=== PATIENT | male | born 1960 | race Caucasian/White ===

== ENCOUNTER 2019-05-16 10:29 | Emergency (ER) | payer BC, SELFPAY ==
[2019-05-16] VITALS (7 sets, daily range): BP systolic 124–162; BP diastolic 93–114; PULSE 63–78; RESP 16–19; TEMP 36.9; O2SAT 93–97; BMI 36.3
--- NOTE | 2019-05-16 10:44 | EKG12_ITS ---
Test Reason : CP Blood Pressure : / mmHG Vent. Rate : 080 BPM Atrial Rate : 080 BPM P-R Int : 160 ms QRS Dur : 110 ms QT Int : 370 ms P-R-T Axes : 049 -27 045 degrees QTc Int : 426 ms Normal sinus rhythm Incomplete right bundle branch block Borderline ECG Confirmed by FARNAZ CARR, LORI ([id number]), movie editor PERLA MEJIA ([id number]) on 05/17/2019 8:25:57 AM Referred By: DANN Confirmed By:LORI OSEI MD
--- NOTE | 2019-05-16 10:46 | ED.DCSUM_ITS ---
- ER Visit Summary Date of Service: 05/16/19 Chief Complaint: Chest pain History of Present Illness: The patient is a 58 M who presents with chest pain is been intermittent since yesterday. Patient states it lasts a few minutes. Patient states it is worse with exertion and improves with rest. Patient loyda cribes the pain is sharp. Patient states pain is over the left chest and radiates into his neck and back. Patient does admit to some diaphoresis and shortness of breath with this. Patient also admits to a cough. Patient denies any fevers. Patient does admit to some lightheadedness and dizziness. Patient cardiac risk factors include smoking and a family history of coronary artery disease in his mother. Physical Examination: Vital signs are stable. Patient is afebrile. Patient is in no acute distress. Oral mucosa is pink and moist. Neck is supple. Trachea is midline. There is no JVD noted. Heart was regular rate and rhythm. Lungs are clear and equal bilaterally. Abdomen is soft. Bowel sounds are normal. There is no tenderness. There is no rebound or guarding noted. Skin is warm dry. Cranial nerves II through XII are intact. There are no focal motor or sensory deficits noted. Extremities are intact. There is no calf tenderness or edema. There is clubbing and cyanosis of the fingers bilaterally. Test Results: CBC and basic metabolic profile were obtained were within normal limits. Troponin was normal. D-dimer was normal. EKG showed normal sinus rhythm with a rate of 80. There are no acute ST or T wave changes. PA and lateral chest x-ray was obtained. There are chronic changes including interstitial scarring but no acute infiltrate. Arterial blood gas showed a pH of 7.41, PCO2 of 42.4, PO2 of 77, bicarb of 26.6, 95% sat on room air. Emergency Department Course and Treatment: Patient was given aspirin here. Patient had no further chest pain. Patient was feeling better on reevaluation. Patient has a HEART score of 3 and a TRACY risk score of 1. Patient was advised that this is low risk for acute cardiac event. Patient was referred to Dr. Barrera to be his primary care physician since she was next on the call sheet for unassigned patients. Patient was also instructed to continue to monitor his blood pressure. Patient was instructed to take a log of his blood pressures to his follow-up appointment. Patient understood and was agreeable with the plan. All questions were answered. Disposition: Discharge home Impression: 1. Chest pain This note was generated with [employer] dictation software. It may contain incorrect words, spelling, and punctuation that were not noted in review of the chart prior to signing ED Disposition - Plan for ED Patient: Disposition: Home or Assisted Living Diagnosis: Chest pain of uncertain etiology Instructions: CHEST PAIN, Uncertain Cause Referrals: Care Physician,No Primary [Primary Care Provider] - Fast,Sarah, DO [NON-STAFF] - 5-7 Days
[2019-05-16] MEDS: Aspirin 81 MG TAB.CHEW 324 MG PO (10:53)
[2019-05-16 10:54] LABS: Absolute Lymphocyte Count 2.49 X10^3/uL (0.83-4.51); Absolute Neutrophil Count 3.9 X10^3/uL (2.0-7.7); Basophil# 0.05 X10^3/uL; Basophil% 0.7 % (0-1); Eosinophil# 0.23 X10^3/uL; Eosinophils% 3.1 % (0-5); Hematocrit 49.7 % (40-54); Lymphocyte # 2.49 X10^3/ul (4.0); Lymphocyte % 33.7 % (19-41); Mean Corp Hgb Conc 34.2 g/dL (32-36); Mean Corpuscular Hgb 31.8 pg (27.0-32.0); Mean Corpuscular Volume 92.9 fL (80-94); Mean Platelet Vol. 8.2 fl (6.2-12.0); Monocyte# 0.66 X10^3/uL; Monocyte% 8.9 % (0-10); NRBC Flagged by Analyzer 0 % (0-5); Neutrophil # 3.88 X10^3/uL (2.7-7.7); Neutrophil % 52.7 % (47-70); Platelet Count 194 K/mm3 (150-450); RBC Distribution Width SD 41.1 fl (35.1-43.9); Red Blood Count 5.35 M/mm3 (4.6-6.2); White Blood Count 7.4 K/mm3 (4.4-11.0)
[2019-05-16] MEDS: Nitroglycerin SL (ED/IMG/CATH) 0.4 MG TABLET SUBLINGUAL (10:56)
--- NOTE | 2019-05-16 11:04 | RAD_ITS ---
STUDY: X-RAY CHEST REASON FOR EXAM: Male, 58 years old. CHEST PAIN RADIATING INTO LEFT SHOULDER, LEFT BACK AND CYANOTIC LEFT UPPER EXTREMITY TECHNIQUE: PA and lateral views of the chest. COMPARISON: Comparison is made with prior study dated January 26, 2012. FINDINGS: EKG electrodes are seen. Since prior study, there has been mild progression of increased interstitial markings at the lung bases suggestive of a bibasilar scarring. There is no demonstrated pleural abnormality. Normal size heart. Normal mediastinum and jarrett. Normal visualized pulmonary arteries. Normal visualized aortic arch and descending thoracic aorta. Normal visualized thoracic spine. Normal visualized ribs, clavicles, and shoulders. There is no demonstrated abnormality of the visualized soft tissue structures of the upper abdomen. RAD/Chest PA and Lateral IMPRESSION: Progressive increase in the interstitial markings at the lung bases slightly worse on the left side suggestive of interstitial scarring. Electronically Signed: Lamine Killian, at 11:19 EDT , Service support ,
[2019-05-16 11:07] LABS: D-Dimer Quantitative (DVT/PE) 0.32 FEU/ug/m (0.27-0.49)
[2019-05-16 11:13] LABS: Anion Gap 8 (5-15); BUN 10 mg/dL (7-18); BUN/Creat Ratio 10.3 RATIO (10-20); Calcium,Total 9.3 mg/dL (8.5-10.1); Chloride 103 mmol/L (98-107); Creatinine, Serum 0.97 mg/dL (0.70-1.30); EST Glomerular Filtration Rate 84 mL/min (>60); Est Glom Filt Rate - Afr Amer 102 mL/min (>60); Estimated Creatinine Clearance 81.29 ml/min; Glucose 145 mg/dL (74-106); Potassium 3.7 mmol/L (3.5-5.1); Sodium Level 139 mmol/L (136-145)
[2019-05-16 13:41] LABS: Base Excess 2 mmol/L (-2 to +2); Bicarbonate 26.6 mmol/L (22-26); Blood Gas Specimen Type ART; O2 Delivery Device Room Air; PO2 77 mmHG (75-100); SITE L Brachial; SO2 95 % (95-99); Time Given 1333; Total Carbon Dioxide 28 mmol/L; pCO2 42.4 mmHg (35-45); pH 7.41 (7.35-7.45)
== END 2019-05-16 14:31 | disposition home or self-care (01) ==
PROVIDERS: Emergency Provider Emergency Medicine
DX: R07.9 Chest pain, unspecified (principal); F17.220 Nicotine dependence, chewing tobacco, uncomplicated
CPT/HCPCS: 36600; 71046; 80048; 82803; 84484; 85025; 85379; 93005; 99285; J7030; A4216

== ENCOUNTER → 2019-05-26 10:54 | Outpatient (CLI) | payer BC, SELFPAY ==
[2019-05-16 10:30] VITALS: BMI 36.3
--- NOTE | 2019-05-26 10:57 | RAD_ITS ---
STUDY: X-RAY CHEST REASON FOR EXAM: Male, 58 years old. COUGH X 3 WEEKS TECHNIQUE: PA and lateral views of the chest. COMPARISON: Comparison is made with prior study dated May 16, 2019. FINDINGS: Stable increased interstitial markings at the lung bases suggesting scarring. Stable mild bilateral apical scarring. There is no demonstrated pleural abnormality. Normal size heart. Normal mediastinum and jarrett. Normal visualized pulmonary arteries. Normal visualized aortic arch and descending thoracic aorta. Normal visualized thoracic spine. Normal visualized ribs, clavicles, and shoulders. There is no demonstrated abnormality of the visualized soft tissue structures of the upper abdomen. RAD/Chest PA and Lateral IMPRESSION: Stable increased markings in both lungs more prominent at the lung bases suggestive of pulmonary scarring. Electronically Signed: Lamine Killian, at 12:04 EDT , Service support ,
== END ==
PROVIDERS: Referring Provider Nurse Practitioner; Visit Provider Nurse Practitioner
DX: R05 Cough (principal)
CPT/HCPCS: 71046

== ENCOUNTER → 2019-05-27 12:53 | Outpatient (CLI) | payer BC, SELFPAY ==
[2019-05-16 10:30] VITALS: BMI 36.3
--- NOTE | 2019-05-27 13:14 | CT_ITS ---
STUDY: CTA CHEST REASON FOR EXAM: Male, 58 years old. LT HAND PURPLE/LT NECK AND LT CHEST PAIN intermittent SINCE 05/11/19. Hx of vocal cord cancer. RADIATION DOSAGE (If Supplied By Facility): CTDIvol = ( 10.10 ) mGy, DLP = ( 1144.13 ) mGycm TECHNIQUE: The examination was performed with the intravenous administration of 200 ml isovue 370. Post-processing of the angiographic images was performed, with multiplanar reformation and 3D reconstruction. Individualized dose optimization techniques were used for this CT. COMPARISON: Comparison is made with prior examination dated November 07, 2016. FINDINGS: Small benign-appearing bilateral axillary lymph nodes. Normal enhancement of the main pulmonary artery and right and left pulmonary arteries. Normal enhancement of the bilateral peripheral pulmonary arteries. There is no demonstrated pulmonary embolism. Normal thoracic aorta and visualized great vessels. There is no demonstrated aortic dissection. Normal heart and pericardium. There are visualized mediastinal lymph nodes, which are within normal size limits, and with normal morphology. Normal hilar regions. Normal visualized trachea and bronchi. The lungs are well expanded. Mild emphysematous changes in the lungs worse in the upper lobes with the areas of scarring at the lung bases with subpleural blebs. Normal pleura. Normal chest wall structures. Normal osseous structures. There is a 2.3 cm x 3 cm cyst in the posterior medial aspect of the upper pole of the right kidney. Hepatomegaly with diffuse fatty infiltration of the liver. CT/CTA Chest W/WO Contrast IMPRESSION: There is no evidence of pulmonary motion. Interstitial scarring at the lung bases superimposed on emphysematous changes. Stable right renal cyst. Hepatomegaly and fatty infiltration of the liver. Electronically Signed: Lamine Killian, at 14:13 EDT , Service support ,
== END ==
PROVIDERS: PCP Nurse Practitioner; Referring Provider Nurse Practitioner; Visit Provider Nurse Practitioner
DX: R06.02 Shortness of breath (principal)
CPT/HCPCS: 71275; Q9967; A4216

== ENCOUNTER → 2019-06-28 10:03 | Outpatient (CLI) | payer BC, SELFPAY ==
[2019-05-16 10:30] VITALS: BMI 36.3
--- NOTE | 2019-06-28 10:07 | RAD_ITS ---
STUDY: X-RAY - LEFT KNEE REASON FOR EXAM: Male, 58 years old. Knee pain after repetitively being on knees for work TECHNIQUE: 4 view(s) of the knee. COMPARISON: None. FINDINGS: Normal visualized distal femur. Normal visualized proximal tibia and fibula. Normal proximal tibiofibular articulation. Normal medial femorotibial compartment. Normal lateral femorotibial compartment. Normal patellofemoral articulation. The soft tissue structures are unremarkable. RAD/Knee 4 or More Views IMPRESSION: Normal x-ray examination of the knee. Electronically Signed: Lamine Killian, at 10:34 EDT , Service support ,
== END ==
PROVIDERS: PCP Nurse Practitioner; Referring Provider Nurse Practitioner; Visit Provider Nurse Practitioner
DX: M79.605 Pain in left leg (principal); M25.562 Pain in left knee
CPT/HCPCS: 73564

== ENCOUNTER → 2019-06-28 10:42 | Outpatient (CLI) | payer BC, SELFPAY ==
[2019-05-16 10:30] VITALS: BMI 36.3
--- NOTE | 2019-06-28 10:46 | VDLE_ITS ---
Reason For Study: Pain RIGHT LEFT CFV is compressible, spontaneous, phasic, GSV is normal. competent and demonstrates normal CFV is compressible, spontaneous, phasic, augmentation. competent, and demonstrates normal Procedure augmentation. Exam performed in department. FV is compressible, spontaneous, phasic, A preliminary report was called and/or faxed competent and demonstrates normal to Ciesa. augmentation. POP V is compressible, spontaneous, phasic, competent and demonstrates normal augmentation. T/P Trunk is compressible. PTV is compressible. LT PerV is compressible. Interpretation Summary Deep veins of the left lower extremity are patent and compressible segmentally. There is no evidence of left lower extremity deep vein thrombosis. Valvular competence appears intact within the proximal deep venous system on the left . The left great saphenous vein appears patent and compressible segmentally. Ordering Physician: Aimee Romo Referring Physician: Aimee Romo Performed By: Kirstin Sol RVT
== END ==
PROVIDERS: PCP Nurse Practitioner; Referring Provider Nurse Practitioner; Visit Provider Nurse Practitioner
DX: M79.605 Pain in left leg (principal)
CPT/HCPCS: 93971

== ENCOUNTER → 2019-07-04 13:06 | Outpatient (CLI) | payer BC, SELFPAY ==
[2019-05-16 10:30] VITALS: BMI 36.3
--- NOTE | 2019-07-04 13:17 | MRI_ITS ---
STUDY: MRI LEFT KNEE REASON FOR EXAM: Male, 58 years old. Knee pain TECHNIQUE: Standardized fat and water weighted pulse sequences were obtained in all 3 orthogonal planes. COMPARISON: X-ray 06/28/2019 FINDINGS: 1 cm trizonal flap tear of the posterior horn body junction of the medial meniscus extending to the inferior surface. Normal hyaline cartilage of the medial femorotibial compartment. Normal medial femoral condyle and tibial plateau. Normal medial collateral ligamentous complex (MCL). Normal distal semimembranosus, gracilis and semitendinosus tendons. Normal lateral meniscus. Normal hyaline cartilage of the lateral femorotibial compartment. Normal lateral femoral condyle and tibial plateau. Normal proximal tibiofibular articulation. Normal lateral collateral (fibular) ligament. Normal popliteus tendon. Normal biceps femoris tendon. Normal anterior cruciate ligament (ACL). Normal posterior cruciate ligament (PCL). Shallow trochlear groove with lateral subluxation of patella and edema superolateral Hoffa''s fat pad consistent with patellofemoral maltracking. Normal hyaline cartilage of the patellofemoral compartment. Normal medial and lateral patellar retinaculum. Normal quadriceps tendon. Normal patellar tendon. Normal Hoffa''s fat pad. There is a small volume joint effusion. There is a Molina''s cyst. Mild prepatellar soft tissue swelling. The soft tissues are unremarkable. The otherwise visualized osseous structures are unremarkable. MRI/Lower Ext Joint Only (Routine) IMPRESSION: 1 cm trizonal flap tear of the posterior horn body junction of the medial meniscus extending to the inferior surface with a small joint effusion and Molina''s cyst. Electronically Signed: Irwin Norton MD at 14:11 EDT Tel , Service support ,
--- OUTSIDE RECORDS SUMMARY | 2019-12-06 08:35 | XMS RPT_ITS | CCD ---
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 nose. Saline rinses also clean the nasal lining and can be used before appl alex sprays containing medications, to get a better effect from the medication. Nasal lavage with warmed saline can be performed as ne eded, once per day, or twice daily for increased symptoms. Nasal lavage carries few risks when performed correctly. Saline nasal sprays and irr igation kits can be purchased [id number]. Saline mix es can also be purchased or patients can make their own solution. A variety of devices, including bulb syr inges, Neti pots, and bottle sprayers, may be used to perform nasal lavage; instructions for nasal lavage are provided in the table. At least 200 mL (about 3/4 cup) of fluid is recommended for each nostril. Nasal decongestants ? Nasal decongestant sprays, including o xymetazoline (Afrin?) and phenylephrine (Karthik-synephrine?) can be used to temporarily treat congestion. However, these s prays should not be used for more than two to three days due to the risk of rebound congestion (when the nose is congested constantly unless the medication is used repeatedly). Other treatments ? Other leah atments for congestion, such as oral antihistamines (such as diphenhydramine/Benadryl?) or zinc supplements are not proven to improve symptoms of sinusitis and can have unwan pippa side effects. Medications to thin secretions (such as guaifenesin) may help to clear m ucus. Secondline treatment ? If symptoms have not improved in seven to ten days, you should arrange for medical evaluation. You may need further treatment. Nasal glucocorticoids ? Nasal glucocorticoids (steroid s delivered by a nasal spray) can help to reduce sw elling inside the nose, usually within two to three days. These drugs have few side effects and dramatical ly relieve symptoms in most people. There are a number of nasal glucocorticoids available by prescription. These drugs are all effective, but differ in how frequently they must be used and how much they cost. You may need to use a nasal decongestant for a few days before starting a nasal glucocorticoid to reduce nasal swelling; this will allow the nasal glucocorticoid to reach more areas of the nasal passages Do I need an antibiotic? ? If bothersome symptom s of sinusitis persist for 10 or more days, it is possible that you have bacterial s inusitis. The need for antibiotics depends upon the severity of your symptoms. Mild symptoms ? There are two possible treatment options if you have mild sinusitis symptoms: treat with antibiotics or continue to watch and wait for one week. Watching and waiting is a reasonable opt ion because up to 75 percent of people with bacterial sinusitis improve within one bg h without antibiotics. During the watch and wait period, treatments to improve symptoms ar e recommended. If symptoms worsen or do not improve after watching and waiting, treatment with an antibiotic is usually recommended. Treatments to relieve symptoms are recommended while using antibiotics. Moderate or severe symptoms ? Most healthcare providers will prescribe an antibiotic for moderate to severe symptoms (temperature >38. 3? C or 101? F and/or severe pain that interferes with usual activities). Treatments to relieve symptoms are also recommended during a ntibiotic treatment. One of the least expensive and most effective antibiotics fo r sinusitis is amoxicillin. An alternate antibiotic jessica l be prescribed if you are allergic to penicillin. Regardless of which antibiotic is prescrib ed, it is important to follow the dosing instructions carefully and to finish the entire course of treatment. Taking the medication less often than prescribe d or stopping the medication early can lead to complications, such as a recurr ent infection. What if I do not improve with treatment? ? If you do not imp rove or worsen after a course of antibiotics, you should be re-examined. In some cases, symptoms of sinusitis improve but then recur. This is usually because the infection was not completely eliminated by the a ntibiotic. An alternate antibiotic, extend ed antibiotic treatment, and/or further testing may be recommended, depending upon your individual situation. Jessica Nguyen LPN 07/07/2018 10:03 AM Signed 2.5 solution aerosol treatment given per provider's orders. Prior to treatment O2 sat is 98%. Treatment completed. O2 sat is 96%. Tolerated well. Jessica Nguyen LPN Referring Provider: SELF [[id number]] Allergies As of Date: 07/07/2018 (No Known Allergies) Date Reviewed: 07/07/2018 Reviewed by: Rosalie ([facility]) Ingrid - Fully Assessed Reason for Visit: Sinus Problem [99] Cmt: sinus pressure and drainage, chest c ongestion and cough x seen in feb not much better Reason For Visit History Recorded Primary Visit Diagnosis:Wheezing [R06.2] Other Visit Diagnosis:Sinobronchitis [J32.9, J40] Order(s):[] albuterol 2.5 mg /3 mL (0.083 %) 2.5 mg (PROVENTIL)Disp: Rfl: azithromycin (ZITHROMAX) 250 mg tabletTake 2 tablets by mout h once daily for 1 day, THEN 1 tablet once daily for 4 days.Disp: 6 tabletRfl: 0 methylPREDNISolone (MEDROL, ALVA,) 4 mg Dose-PackFollow dosin g instructions, take with food.Disp: 1 PackageRfl: 0 albuterol HFA (VENTOLIN HFA) 90 mcg/actuation inhalerInhale 2 Puffs as instructed every 4 hours as needed for Wheezing/Shortness of Breath.Disp: 1 InhalerRfl: 0 Prescriptions as of 07/07/2018 Sig: AZITHROMYCIN 250 MG TABLET Take 2 tablets by mouth once * METHYLPREDNISOLONE 4 MG TABLE* Follow dosing instructions, t * ALBUTEROL SULFATE HFA 90 MCG/* Inhale 2 Puffs as instructed * Problem List As Of Date: 07/07/2018 (None) Other instructions from your clinician: ASSESSMENT/PLAN: 1. Wheezing - ICD9: 786.07, ICD10: R06.2 (primary diagnosis) - ALBUTEROL SULFATE 2.5 MG/3 ML (0.083 %) SOLUTION FOR NEBUL IZATION-given in office 2. Sinobronchitis - ICD9: 473.9, 490, ICD10: J32.9, J40 - Will begin treatment with Zithromax pack as directed - The patient should also be given Mucinex for the first 5-7 days of treatment. - Supportive care with plenty of fluids, rest, and analgesia prn. - AZITHROMYCIN 250 MG TABLET - METHYLPREDNISOLONE 4 MG TABLETS IN A DOSE PACK - ALBUTEROL SULFATE HFA 90 MCG/ACTUATION AEROSOL INHALER - Follow-up with your PCP in 3-5 days if symptoms have not i mproved or sooner if symptoms worsen - Discussed red flags and need for immediate medical evaluat ion if any occur. - Discussed supportive care treatment with fluids, rest and analgesia. - Discussed expected course of illness Rosalie Quintero APRN.[employer] ACUTE BRONCHITIS: You have acute bronchitis. This means the airway passages in your lungs are inflamed. Bronchitis may be caused by viruses or bacteri a. Inhaling cigarette smoke will always make it worse. Exposure to irrit ating chemicals or second hand smoke as well as allergies can cont ribute to bronchitis. Repeat episodes of bronchitis may cause lifelong lung problems. Acute bronchitis is usually treated with rest, fluids, cough medicine, and possibly antibiotics or inhaled medicine to open up the smal l airways. It is very important that you avoid smoke and drink increased a lupillo of fluids. A cool air vaporizer can help thin bronchial secreti ons. This makes it easier to cough and clear your chest. If you are a cigarette smoker, consider using nicotine gum or skin patches to help you withdraw. Recovery from bronchitis is often slow, but you should start feeling better after 2-3 days of treatment. Please call your doctor or return here if you have any of the following symptoms: - Increased fever, chills, or chest pain. - Severe shortness of breath or bloody sputum. - Do not improve after 3 days of proper treatment. [facility] PATIENT INFO ACUTE SINUSITIS OVERVIEW Rhinosinusitis, or more commonly sinusitis, is the medical t erm for inflammation (swelling) of the lining of the sinuses and nos e. The sinuses are the hollow areas within the facial bones that are connec pippa to the nasal openings. The sinuses are lined with mucous membranes, similar to the inside of the nose. There are two main types of sinusitis: acute and chronic. Ac [place] sinusitis is inflammation that lasts for less than four weeks while ch ronic sinusitis lasts for more than 12 weeks. Acute sinusitis is c ommon, affecting approximately one million people per year in the [place] [facility] [place]. ACUTE SINUSITIS CAUSES The most common cause of acute sinusitis is a viral infectio n associated with the common cold. Bacterial sinusitis occurs much less c ommonly, in only 0.5 to 2 percent of cases, usually as a complication of viral sinusitis. Because antibiotics are effective only against bacterial, an d not viral, infections, most people do not need antibiotics for acute si nusitis. ACUTE SINUSITIS SYMPTOMS Symptoms of acute sinusitis include: ? Nasal congestion or blockage ? Thick, yellow to green discharge from the nose ? Pain in the teeth ? Pain or pressure in the face that is worse when bending fo rwards Other acute sinusitis symptoms can include fever (temperatur e greater than 100.4?F or 38?C), fatigue, cough, difficulty or inability to smell, ear pressure or fullness, headache, and bad breath. In most cases, these symptoms develop over the course of one day and begin to improve within seven to 10 days. DO I NEED TO BE EXAMINED? It is difficult to know if you have a viral or bacterial sin us infection initially. However, most people with a viral infection impro ve without treatment within seven to 10 days after symptoms begin. Bact erial sinusitis also sometimes improves without treatment, althoug h it can also worsen and require treatment. If one or more of the following bothersome symptoms last mor e than seven days, an examination by a healthcare provider is recommended : ? Thick, yellow to green discharge from the nose ? Face or tooth pain, especially if it is only on one side ? Tenderness over the maxillary sinuses (located on the left and right side of the nose, inside the cheekbones) ? Symptoms that initially improve and then worsen When to seek immediate help ? If you have one or more of the following symptoms, you should seek medical attention immediately (danisha n if symptoms have been present for less than seven days): ? High fever (>102.5? F or 39.2? C) ? Sudden, severe pain in the face or head ? Double vision or difficulty seeing ? Confusion or difficulty thinking clearly ? Swelling or redness around one or both eyes ? Stiff neck, shortness of breath ACUTE SINUSITIS TREATMENT Initial treatment of a sinus infection aims to relieve sympt oms since almost everyone will improve within the first seven to 10 da ys. Experts recommend avoiding antibiotics during this time unless there is clear evidence of a severe bacterial infection. Initial treatment Pain relief ? Non-prescription pain medications, such as mario taminophen (eg, Tylenol?) or ibuprofen (eg, Motrin?, Advil?) are recomm ended for pain. Nasal irrigation and saline sprays ? Rinsing the nose with a salt-water (saline) solution is called nasal irrigation or nasal lavage . Saline is also available in a standard nasal spray, although this is n ot as effective as using larger amounts of water in an irrigation. Nasal irrigation is particularly useful for treating drainag e down the back of the throat, sneezing, nasal dryness, and congestion. The treatment helps by rinsing out allergens and irritants from the nose. Saline rinses also clean the nasal lining and can be used before applying sprays containing medications, to get a better effect from the medi cation. Nasal lavage with warmed saline can be performed as needed, once per day, or twice daily for increased symptoms. Nasal lavage carries few risks when performed correctly. Saline nasal sprays and irrigation kits can be purchased [id number]. Saline mixes can also be purchas ed or patients can make their own solution. A variety of devices, including bulb syringes, Neti pots, an d bottle sprayers, may be used to perform nasal lavage; instructions for nasal lavage are provided in the table. At least 200 mL (about 3/4 cup) of fluid is recommended for each nostril. Nasal decongestants ? Nasal decongestant sprays, including o xymetazoline (Afrin?) and phenylephrine (Karthik-synephrine?) can be used to temporarily treat congestion. However, these sprays should not be used f or more than two to three days due to the risk of rebound congestion (whe n the nose is congested constantly unless the medication is used repeatedl y). Other treatments ? Other treatments for congestion, such as oral antihistamines (such as diphenhydramine/Benadryl?) or zinc s upplements are not proven to improve symptoms of sinusitis and can have unw anted side effects. Medications to thin secretions (such as guaifenesin ) may help to clear mucus. Secondline treatment ? If symptoms have not improved in josh n to ten days, you should arrange for medical evaluation. You may need furt her treatment. Nasal glucocorticoids ? Nasal glucocorticoids (steroids deli franck by a nasal spray) can help to reduce swelling inside the nose, us ually within two to three days. These drugs have few side effects and silvano matically relieve symptoms in most people. There are a number of nasal glucocorticoids available by pre scription. These drugs are all effective, but differ in how frequently they must be used and how much they cost. You may need to use a nasal decongestant for a few days befo re starting a nasal glucocorticoid to reduce nasal swelling; this will all ow the nasal glucocorticoid to reach more areas of the nasal passages Do I need an antibiotic? ? If bothersome symptoms of sinusit is persist for 10 or more days, it is possible that you have bacterial sinu sitis. The need for antibiotics depends upon the severity of your sympt oms. Mild symptoms ? There are two possible treatment options if you have mild sinusitis symptoms: treat with antibiotics or continue to wa tch and wait for one week. Watching and waiting is a reasonable option because up to 75 percent of people with bacterial sinusitis improve within one month wit hout antibiotics. During the watch and wait period, treatments to improve symptoms are recommended. If symptoms worsen or do not improve after watching and wait ing, treatment with an antibiotic is usually recommended. Treatments to rel ieve symptoms are recommended while using antibiotics. Moderate or severe symptoms ? Most healthcare providers will prescribe an antibiotic for moderate to severe symptoms (temperature >38. 3? C or 101? F and/or severe pain that interferes with usual activities). Treatments to relieve symptoms are also recommended during a ntibiotic treatment. One of the least expensive and most effective antibiotics fo r sinusitis is amoxicillin. An alternate antibiotic will be prescribed if y ou are allergic to penicillin. Regardless of which antibiotic is pr escribed, it is important to follow the dosing instructions carefully and to finish the entire course of treatment. Taking the medication less often than prescribed or stopping the medication early can lead to comp lications, such as a recurrent infection. What if I do not improve with treatment? ? If you do not imp rove or worsen after a course of antibiotics, you should be re-examined. In some cases, symptoms of sinusitis improve but then recur. This is usually because the infection was not completely eliminated by the antibiotic. An alternate antibiotic, extended antibiotic leah atment, and/or further testing may be recommended, depending upon your nohemy vidual situation. Visit Notes: >> Jessica Nguyen LPN ThuJuly 07, 2018 10:02 AM Status: Sig coleman 2.5 solution aerosol treatment given per provider's orders. Prior to treatment O2 sat is 98%. Treatment completed. O2 sat is 96%. Tolerated well. Jessica Nguyen LPN Prescriptions ordered this encounter Disp Refills Start End ALBUTEROL SULFATE 2.5 MG/3 ML (0.083* 07/07/2018 07/07/2018 Route: INHALATION AZITHROMYCIN 250 MG TABLET 6 ta* 0 07/07/2018 07/12/2018 Route: ORAL Sig: Take 2 tablets by mouth once daily for 1 day, THEN 1 tablet once daily for 4 days. METHYLPREDNISOLONE 4 MG TABLETS IN A* 1 Pa* 0 07/07/2018 Sig: Follow dosing instructions, take with food. ALBUTEROL SULFATE HFA 90 MCG/ACTUATI* 1 In* 0 07/07/2018 Cmt: Dispense ProAir HFA: Brand or Generic Ok Route: INHALATION Sig: Inhale 2 Puffs as instructed every 4 hours as needed fo r Wheezing/Shortness of Breath. Encounter Status:Closed by ROSALIE QUINTERO on 07/07/18 Vital Signs Vital Sign Description Value / Unit Date Location The following section is limited to 5 en tries per type and includes entries from the following time range: [id number] - [id number] 0. BMI (Body Mass Index) 34.51 kg/m2 08-23-2019 [facility] (21511) BMI (Body Mass Index) 34.51 kg/m2 07-20-2019 [facility] (21066) BMI (Body Mass Index) 34.51 kg/m2 07-11-2019 [facility] (18860) NEGATED: Highlighted 35.71 kg/m2 07-07-2019 - 07-07-2019 [facility] ([id number]) BMI (Body Mass Index) 35.59 kg/m2 06-28-2019 [facility] (44252) Body Temperature 97.8 [degF] 07-11-2019 [facility] (58508) Body Temperature 97.4 [degF] 06-28-2019 [facility] (28613) Body Temperature 98 [degF] 06-06-2019 [facility] (50266) Body Temperature 97.6 [degF] 05-20-2019 [facility] (85064) Body Temperature 97.5 [degF] 11-24-2016 [facility] (27589) Body weight 102.97 kg 08-23-2019 [facility] (14654) Body weight 102.97 kg 07-20-2019 [facility] (35825) Body weight 102.97 kg 07-11-2019 [facility] (66812) NEGATED: Highlighted 106.14 kg 07-07-2019 - 07-07-2019 [facility] (15739) NEGATED: Highlighted 106 kg 07-07-2019 - 07-07-2019 [facility] - [facility] (95389) BP Diastolic 80 mm[Hg] 08-23-2019 [facility] (94749) BP Diastolic 80 mm[Hg] 07-20-2019 [facility] (82682) BP Diastolic 78 mm[Hg] 07-11-2019 [facility] (92116) BP Diastolic 76 mm[Hg] 06-28-2019 [facility] (15721) BP Diastolic 94 mm[Hg] 06-27-2019 [facility] (45599) BP Systolic 120 mm[Hg] 08-23-2019 [facility] (35550) BP Systolic 117 mm[Hg] 07-20-2019 [facility] (28930) BP Systolic 122 mm[Hg] 07-11-2019 [facility] (51145) BP Systolic 118 mm[Hg] 06-28-2019 [facility] (48262) BP Systolic 127 mm[Hg] 06-27-2019 [facility] (45600) BSA (Body Surface Area) 2.16 m2 08-23-2019 [facility] (40544) BSA (Body Surface Area) 2.16 m2 07-20-2019 [facility] (04760) BSA (Body Surface Area) 2.16 m2 07-11-2019 [facility] (89589) BSA (Body Surface Area) 2.19 m2 06-28-2019 [facility] (40431) BSA (Body Surface Area) 2.17 m2 06-27-2019 [facility] (79135) Height 172.72 cm 08-23-2019 [facility] (44586) Height 172.72 cm 07-20-2019 [facility] (53615) Height 172.72 cm 07-11-2019 [facility] (54738) NEGATED: Highlighted 173 cm 07-07-2019 - 07-07-2019 [facility] (05154) NEGATED: Highlighted 172.72 cm 07-07-2019 - 07-07-2019 [facility] (79800) Pulse (Heart Rate) 79 /min 07-11-2019 [facility] (87372) Pulse (Heart Rate) 77 /min 06-28-2019 [facility] (17290) Pulse (Heart Rate) 97 /min 05-27-2019 [facility] (99775) Pulse (Heart Rate) 91 /min 05-20-2019 [facility] (56202) Pulse (Heart Rate) 77 /min 11-24-2016 [facility] (50071) Pulse Oximetry 97 % 07-20-2019 [facility] (28653) Pulse Oximetry 95 % 07-11-2019 [facility] (60841) Pulse Oximetry 97 % 06-28-2019 [facility] (67540) Pulse Oximetry 90 % 06-06-2019 [facility] (83346) Pulse Oximetry 95 % 05-30-2019 [facility] (19619) Respiratory Rate 18 /min 07-11-2019 [facility] (95997) Respiratory Rate 16 /min 06-28-2019 [facility] (48498) Respiratory Rate 90 /min 06-06-2019 [facility] (56864) Respiratory Rate 16 /min 05-20-2019 [facility] (44166) Respiratory Rate 17 /min 11-24-2016 [facility] (10855) Encounters Date Type Reason Provider Location 07-05-2019 - Annotation/Addend Medial meniscus tear [facility] 07-05-2019 [facility] 07-04-2019 - Annotation/Addend Medial meniscus tear [facility] 07-04-2019 [facility] 06-28-2019 - Annotation/Addend Knee pain, left Compreh ensive 06-28-2019 [facility] 05-30-2019 - Annotation/Addend H/O: asbestos Comprehen sive 05-30-2019 [facility] exposure [facility] 05-27-2019 - Annotation/Addend Chronic obstructive Com prehensive 05-27-2019 [facility] pulmonary disease and [employer] [facility] bronchiectasis 05-27-2019 - Annotation/Addend Cough Comprehens lan 05-27-2019 [facility] 05-27-2019 - Annotation/Addend Hypertensive disorder C omprehensive 05-27-2019 [facility] 05-25-2019 - Annotation/Addend Short of breath on Comp rehensive 05-25-2019 [facility] exertion [facility]i [facility] 11-24-2016 - Annotation/Addend Rib pain on right Compr ehensive 11-24-2016 um side Internal Medici ne 11-04-2016 - Office outpatient Comprehens lan 11-04-2016 new 45 minutes Internal Medi cine 08-23-2019 - Office outpatient Comprehens lan 08-23-2019 visit 15 minutes Internal Me dicine 07-20-2019 - Office outpatient Comprehens lan 07-20-2019 visit 15 minutes Internal Me dicine 06-27-2019 - Office outpatient Nonsmoker Comprehens lan 06-27-2019 visit 15 minutes Internal Me dicine 05-30-2019 - Office outpatient Comprehens lan 05-30-2019 visit 15 minutes Internal Me dicine 05-25-2019 - Office outpatient Comprehens lan 05-25-2019 visit 15 minutes Internal Me dicine 05-23-2019 - Office outpatient Comprehens lan 05-23-2019 visit 15 minutes Internal Me dicine 05-20-2019 - Office outpatient Comprehens lan 05-20-2019 visit 15 minutes Internal Me dicine 11-24-2016 - Office outpatient Comprehens lan 11-24-2016 visit 15 minutes Internal Me dicine 07-11-2019 - Office outpatient Comprehens lan 07-11-2019 visit 25 minutes Internal Me dicine 06-28-2019 - Office outpatient Comprehens lan 06-28-2019 visit 25 minutes Internal Me dicine 06-22-2019 - Office outpatient Comprehens lan 06-22-2019 visit 25 minutes Internal Me dicine 06-06-2019 - Office outpatient Comprehens lan 06-06-2019 visit 25 minutes Internal Me dicine 05-27-2019 - Office outpatient Comprehens lan 05-27-2019 visit 25 minutes Internal Me dicine 07-07-2019 - [facility] encounter [facility] [facility] ([id number]) 11-13-2016 - Phone Encounter Unspecified Diagnosis Com prehensive 11-13-2016 Internal Medici ne 11-07-2016 - Phone Encounter Rib pain on right Compreh ensive 11-07-2016 side Internal Medici ne Procedures Procedure Name Date Provider Location NEGATED: Highlighted 07-07-2019 [facility] current 07-07-2019 [facility] ([id number]) Arthrocentesis aspir&/inj 07-07-2019 - [facility] major jt/bursa w/o us 07-07-2019 [facility] ([id number]) Blood pressure screening 07-07-2019 - [facility] not performed - reason not 07-07-2019 [facility] - given [facility] ([id number]) BMI documented as above 07-07-2019 - [facility] normal parameters - 07-07-2019 [facility] - follow-up documented [facility] ([id number]) Documentation of current 07-07-2019 - [facility] medications 07-07-2019 [facility] ([id number]) Injection - betamethasone 07-07-2019 - [facility] acetate 3 mg and 07-07-[address] [facility] ter - betamethasone sodium [facility] phosphate 3 mg Clinic ([id number]) Osteoarthritis assess 07-07-2019 - [facility] 07-07-[facility] ([id number]) Pain assessment documented 07-07-2019 - [facility] as positive - follow-up 07-07-2019 [facility] - documented [facility] ([id number]) Tobacco non-user 07-07-2019 - [facility] 07[facility] ([id number]) Lower Ext Joint Only 07-04-2019 - Betty Ciesa Comprehensi ve Internal (Routine) 07-04-2019 Medicine ([id number]) Venous Duplex US, 06-28-2019 - Betty Ciesa [facility] Unilateral 06-28-2019 Medicine ([id number]) Knee 4 or More Views 06-28-2019 - Betty Ciesa Comprehensi ve Internal 06-28-2019 Medicine ([id number]) CTA Chest W/WO Contrast 05-27-2019 - Betty Ciesa Comprehe nsive Internal 05-27-2019 Medicine ([id number]) Chest PA and Lateral 05-26-2019 - Betty Ciesa Comprehensi ve Internal 05-26-2019 Medicine ([id number]) Chest WITH Contrast 11-07-2016 - Betty Ciesa Comprehensiv e Internal 11-07-2016 Medicine ([id number]) Appendectomy Abner Fletcher [facility] (46659) Right knee reconstruction Abner Fletcher [facility] ([id number]) Vocal cord sx Abner Fletcher [facility] In [facility] Medicine ([id number]) Plan of Treatment Plan Description Date Location Procedure Education Eprescribed 08-23-2019 Comprehensiv e Internal prescriptions (G8553) Medicine ( [id number]) Provider Instructions Follow up in 3 months 08-23-2019 Comp rehensive Internal for Treatment Medicine ([id number]) Procedure Education Eprescribed 07-20-2019 Comprehensiv e Internal prescriptions (G8553) Medicine ( 26725) Provider Instructions Follow up in 3 months 07-20-2019 Comp rehensive Internal for Treatment Medicine ([id number]) Procedure Education Eprescribed 07-11-2019 Comprehensiv e Internal prescriptions (G8553) Medicine ( [id number]) Provider Instructions no information 07-11-2019 Comprehens lan Internal for Treatment Medicine ([id number]) Appointment Appointment 07-07-2019 - [facility] 07-07-[facility] ([id number]) XR KNEE 1-2 VWS-LT XR KNEE 1-2 VWS-LT 07-07-2019 - [facility] ([id number]) Procedure Education Eprescribed 06-28-2019 Comprehensiv e Internal prescriptions (G8553) Medicine ( 87703) Provider Instructions Follow up - Make appt 06-28-2019 Comp rehensive Internal for Treatment after diagnostic tests Medicine ([id number]) Procedure Education Eprescribed 06-27-2019 Comprehensiv e Internal prescriptions (G8553) Medicine ( 53130) Provider Instructions Follow up tomorrow, as 06-27-2019 Com prehensive Internal for Treatment needed Medicine ([id number]) Procedure Education Eprescribed 06-22-2019 Comprehensiv e Internal prescriptions (G8553) Medicine ( 12248) Provider Instructions Follow up in 3 weeks 06-22-2019 Compr ehensive Internal for Treatment Medicine ([id number]) Provider Instructions no information 06-06-2019 Comprehens lan Internal for Treatment Medicine ([id number]) Procedure Education Eprescribed 05-30-2019 Comprehensiv e Internal prescriptions (G8553) Medicine ( 49588) Provider Instructions Follow up in 4 weeks 05-30-2019 Compr ehensive Internal for Treatment Medicine (15459) Procedure Education Eprescribed 05-27-2019 Comprehensiv e Internal prescriptions (G8553) Medicine ( 42065) Procedure Education Eprescribed 05-25-2019 Comprehensiv e Internal prescriptions (G8553) Medicine ( 28591) Procedure Education Eprescribed 05-23-2019 Comprehensiv e Internal prescriptions (G8553) Medicine ( 09440) Provider Instructions Follow up if no 05-23-2019 Comprehens lan Internal for Treatment improvement or if Medicine (4469 1) symptoms worsen Procedure Education Eprescribed 05-20-2019 Comprehensiv e Internal prescriptions (G8553) Medicine ( 30106) Provider Instructions Follow up in 2 weeks 05-20-2019 Compr ehensive Internal for Treatment Medicine (58385) Sputum Culture (47367) Sputum Culture (11592) 05-20-2019 [facility] (43370) Comment: RSV Procedure Education Eprescribed prescriptions 11-24-2016 [facility] (G8553) Medicine ([id number]) Procedure Education Eprescribed prescriptions 11-04-2016 [facility] Internal (G8553) Medicine (30534) Provider Instructions Follow up in 2 weeks 11-04-2016 Compr ehensive Internal for Treatment Medicine (32484) Patient Education \cps-[email or web address]\CPS_PtEducation [facility] \[email or web address].pdf [facility] (05932) no information [facility] (62413) no information [facility] (37912) no information [facility] (92713) no information [facility] (09744) no information [facility] (02288) no information [facility] (70080) no information [facility] (95347) no information [facility] (79712) no information [facility] (62793) no information [facility] (16677) no information [facility] (67127) Payers Payer Name Policy Number Location [facility] ([id number]) The following information is from the original human readable contentNo Payer Records Found Social History Type Social History Date Location Description NEGATED: Highlighted Alcohol use 07-07-2019 - [facility] rowAlcohol use 07-07-2019 Orthopaedic [facility] ([id number]) NEGATED: Highlighted Employment detail 07-07-2019 - [facility] rowEmployment detail 07-07-2019 [id number] NEGATED: Highlighted Former smoker 07-07-2019 - [facility] rowAssertion 07-07-2019 Orthopaedic [facility] (31907) Alcohol use: Alcohol use: [facility] (57196) Tobacco use: Tobacco use: [facility] (69018) The following information is from the original human readable contentNo Social History Records Found Summary Purpose Family History Unknown Family Member Name Dates Details Brother 1 Comments: Diabetic Status: Active Advance Directives No Advanced Directives Records FoundThere may be information available, but it has not been provided by the sender. Chief Complaint Chief Complaint Description Start Date left knee pain Preliminary chief complaint data, not yet signed by the author as of Instructions Instruction Description Start Date Patient advised to follow-up with Primary Care Physici an for BMI management. Name Dates Details How to access health information online Start: 23-Aug-2019 Instruction Type: Patient Education Indication: Former smoker How to access health information online - Detail Start: Jul-2019 Instruction Type: Patient Education Indication: Former smoker Patient Instructions Start: 23-Aug-2019 Instruction Type: Provider Instructions for Treatment Indication: Former smoker How to access health information online Start: 20-Jul-2019 Instruction Type: Patient Education Indication: Former smoker How to access health information online - Detail Start: Jun-2019 Instruction Type: Patient Education Indication: Former smoker Patient Instructions Start: 20-Jul-2019 Instruction Type: Provider Instructions for Treatment Indication: Former smoker How to access health information online Start: 11-Jul-2019 Instruction Type: Patient Education Indication: Nonsmoker How to access health information online - Detail Start: Jun-2019 Instruction Type: Patient Education Indication: Nonsmoker Patient Instructions Start: 11-Jul-2019 Instruction Type: Provider Instructions for Treatment Indication: Former smoker How to access health information online Start: 28-Jun-2019 Instruction Type: Patient Education Indication: Nonsmoker How to access health information online - Detail Start: Instruction Type: Patient Education Indication: Nonsmoker Patient Instructions Start: 28-Jun-2019 Instruction Type: Provider Instructions for Treatment Indication: Nonsmoker How to access health information online Start: 27-Jun-2019 Instruction Type: Patient Education Indication: BMI 35.0-35.9,adult How to access health information online - Detail Start: Instruction Type: Patient Education Indication: BMI 35.0-35.9,adult Patient Instructions Start: 27-Jun-2019 Instruction Type: Provider Instructions for Treatment Indication: Right flank pain How to access health information online Start: 22-Jun-2019 Instruction Type: Patient Education Indication: Nonsmoker How to access health information online - Detail Start: May-2019 Instruction Type: Patient Education Indication: Nonsmoker Patient Instructions Start: 22-Jun-2019 Instruction Type: Provider Instructions for Treatment Indication: Hypertension Patient Instructions Start: 06-Jun-2019 Instruction Type: Provider Instructions for Treatment Indication: Fall How to access health information online Start: 30-May-2019 Instruction Type: Patient Education Indication: Nonsmoker How to access health information online - Detail Start: Instruction Type: Patient Education Indication: Nonsmoker Patient Instructions Start: 30-May-2019 Instruction Type: Provider Instructions for Treatment Indication: Nonsmoker How to access health information online Start: 27-May-2019 Instruction Type: Patient Education Indication: Nonsmoker How to access health information online - Detail Start: Instruction Type: Patient Education Indication: Nonsmoker Patient Instructions Start: 27-May-2019 Instruction Type: Provider Instructions for Treatment Indication: Nonsmoker How to access health information online Start: 25-May-2019 Instruction Type: Patient Education Indication: BMI 35.0-35.9,adult How to access health information online - Detail Start: Instruction Type: Patient Education Indication: BMI 35.0-35.9,adult Patient Instructions Start: 25-May-2019 Instruction Type: Provider Instructions for Treatment Indication: BMI 35.0-35.9,adult How to access health information online Start: 23-May-2019 Instruction Type: Patient Education Indication: BMI 35.0-35.9,adult How to access health information online - Detail Start: Apr-2019 Instruction Type: Patient Education Indication: BMI 35.0-35.9,adult Patient Instructions Start: 23-May-2019 Instruction Type: Provider Instructions for Treatment Indication: BMI 35.0-35.9,adult How to access health information online Start: 20-May-2019 Instruction Type: Patient Education Indication: Nonsmoker How to access health information online - Detail Start: Apr-2019 Instruction Type: Patient Education Indication: Nonsmoker Patient Instructions Start: 20-May-2019 Instruction Type: Provider Instructions for Treatment Indication: BMI 35.0-35.9,adult How to access health information online Start: 24-Nov-2016 Instruction Type: Patient Education Indication: Rib pain on right side How to access health information online - Detail Start: Instruction Type: Patient Education Indication: Rib pain on right side Patient Instructions Start: 24-Nov-2016 Instruction Type: Provider Instructions for Treatment Indication: Rib pain on right side How to access health information online Start: 04-Nov-2016 Instruction Type: Patient Education Indication: Rib pain on right side How to access health information online - Detail Start: Oct-2016 Instruction Type: Patient Education Indication: Rib pain on right side Patient Instructions Start: 04-Nov-2016 Instruction Type: Provider Instructions for Treatment Indication: Rib pain on right side Assessments There may be information available, but it has not been provided by the sender. Review of System There may be information available, but it has not been provided by the sender. History of Present Illness There may be information available, but it has not been provided by the sender. Additional Source Comments FOR RECORDS PERTAINING TO PATIENTS WHO ARE OR HAVE BEEN ENROLLED IN A CHEMICAL DEPENDENCY/SUBSTANCE ABUSE PROGRAM, SOME INFORMATION MAY BE OMITTED. This clinical summary was aggregated from multiple sources. Caution should be exercised in using it in the provision of clinical care. This summary normalizes information from multiple sources, and as a consequence, information in this document may materially changethe coding, format and clinical context of patient data. In addition, data may be omittedin some cases. CLINICAL DECISIONS SHOULD BE BASED ON THE PRIMARY CLINICAL RECORDS. [facility] provides no warranty or guarantee of the accuracy or completeness of information in this document. UNRECOGNIZED CONTENT PROVIDED BELOW FOR UNRECOGNIZED SECTION No Status Records Found UNRECOGNIZED CONTENT PROVIDED BELOW FOR UNRECOGNIZED SECTION INFORMATION SOURCE DATE CREATED AUTHOR AUTHOR'S ORGANIZATIO N 05/16/2019 [facility] UNRECOGNIZED CONTENT PROVIDED BELOW FOR UNRECOGNIZED SECTION Reason for Visit Reason For Visit Description Start Date New - 1st visit with practice Preliminary reason for visit data, not yet signed by the author as of left knee pain
== END ==
PROVIDERS: PCP Nurse Practitioner; Referring Provider Nurse Practitioner; Visit Provider Nurse Practitioner
DX: M25.562 Pain in left knee (principal)
CPT/HCPCS: 73721

== ENCOUNTER → 2019-08-31 11:10 | Outpatient (CLI) | payer BC, SELFPAY ==
[2019-05-16 10:30] VITALS: BMI 36.3
--- NOTE | 2019-08-31 11:12 | US_ITS ---
STUDY: RENAL ULTRASOUND - COMPLETE REASON FOR EXAM: Male, 58 years old. PAIN IN RIGHT SIDE OF BODY X 3 WEEKS TECHNIQUE: Ultrasound evaluation of the kidneys was performed with real-time and static collado-scale imaging. COMPARISON: None. FINDINGS: RIGHT KIDNEY: Normal location of the right kidney, which is normal in size. The right kidney measures 12.1 cm x 5.9 cm x 6.2 cm. There is a normal cortex of the right kidney. The renal cortex measures 2.0 cm. There is a 2.7 cm x 2.4 cm x 2.4 cm cyst in the lateral portion of the right kidney. Findings suggestive of multiple tiny intrarenal calculi. There is no right hydronephrosis. DISTAL RIGHT URETER: There is non-visualization of the distal right ureter. There is no demonstrated right ureterovesical junction calculus. There is no demonstrated right ureteral jet. LEFT KIDNEY: Normal location of the left kidney, which is normal in size. The left kidney measures 10.4 cm x 5.9 cm x 6.3 cm. There is a normal cortex of the left kidney. The renal cortex measures 2.1 cm. There is no left renal mass or cyst. Findings suggesting multiple tiny nonobstructive intrarenal calculi. There is no left hydronephrosis. DISTAL LEFT URETER: There is non-visualization of the distal left ureter. There is no demonstrated left ureterovesical junction calculus. There is a visualized left ureteral jet. BLADDER: The distended urinary bladder has a volume of 214 ml. There is a normal wall thickness of the distended urinary bladder. There is no demonstrated mass within the urinary bladder. There are no demonstrated bladder calculi. US/Kidney and Bladder IMPRESSION: Findings suggestive of multiple tiny nonobstructive bilateral intrarenal calculi. Right renal cyst. Electronically Signed: Lamine Killian, at 14:52 EDT , Service support ,
== END ==
PROVIDERS: PCP Nurse Practitioner; Referring Provider Nurse Practitioner; Visit Provider Nurse Practitioner
DX: R52 Pain, unspecified (principal)
CPT/HCPCS: 76770

== ENCOUNTER 2021-03-18 13:32 | Emergency (ER) | payer BC, SELFPAY ==
[2021-03-18 13:33] VITALS: BP 126/93; PULSE 79; RESP 18; TEMP 36.4; O2SAT 95; BMI 34.9
[2021-03-18 14:18] VITALS: BP 116/78; PULSE 76; RESP 19
--- NOTE | 2021-03-18 14:18 | EKG12_ITS ---
Test Reason : CP Blood Pressure : / mmHG Vent. Rate : 073 BPM Atrial Rate : 073 BPM P-R Int : 180 ms QRS Dur : 104 ms QT Int : 372 ms P-R-T Axes : 020 -25 034 degrees QTc Int : 409 ms Normal sinus rhythm Low voltage QRS (Limb Leads) Confirmed by AMY CARR, MELANY ([id number]), medical editor PERLA MEJIA ([id number]) on 03/20/2021 9:13:45 AM Referred By: Confirmed By:MELANY REYES MD
--- NOTE | 2021-03-18 14:29 | EDS_ITS ---
HPI History of Present Illness Chief Complaint: Chest Pain Informant: patient Narrative Narrative: Patient presents transient midsternal to right-sided chest burning that was intense lasted up to time of arrival. States he [place] [address] when things occurred. Denies pain in the neck back or arms. No dyspnea or cough. No nausea or vomiting. No diaphoresis. States headache couple similar episodes recently however is brief currently followed by his primary care he states he had an echocardiogram Thursday and has an upcoming calcium scoring test. Stress test in the past no heart cath. Remote tobacco last time was 2 years ago. Mother with an MA at the age of 52. Hypertension. Denies diabetes or hypercholesterolemia. States he has had multiple Covid infections in the past most recent was over 2 months ago. Symptoms all resolved since then. He is nonvaccinated. Denies any shortness of breath complaints. Currently asymptomatic. Prior Similar Symptoms: Yes CVD Risk Factors: Positive for Hypertension and Smoking PFSH PFSH Medical History Alcohol abuse COPD (chronic obstructive pulmonary disease) Fatty liver Former smoker Hypertension Kidney stones Home Medications albuterol sulfate 2 puff IH Q4H PRN 05/16/19 [History Last Taken Unknown] valsartan-hydrochlorothiazide 1 tab PO DAILY 03/18/21 [History Last Taken Unknown] Allergy/AdvReac Type Severity Reaction Status Date / Time No Known Allergies Allergy Verified 03/18/21 13:33 Surgical History History of appendectomy Social History Smoking Status: Former smoker ROS ROS ED Constitutional Constitutional ED: Denies chills, fever(s) or sweats Eyes Eyes: Denies change in vision ENT ENT ED: Denies dysphagia or sore throat Cardiovascular Cardiovascular: Reports chest pain; Denies leg edema, palpitations or racing heartbeat Respiratory/Chest Respiratory/Chest: Denies cough, dyspnea or dyspnea on exertion Gastrointestinal Gastrointestinal: Denies abdominal pain, diarrhea, nausea or vomiting Genitourinary Genitourinary ED: Denies dysuria, hematuria or urinary frequency Musculoskeletal Musculoskeletal: Denies back pain, extremity pain or neck pain Integumentary Denies rash or wounds Neurologic Neurologic: Denies headache(s), paresthesias or weakness EXAM Physical Exam Const Vital Signs: 03/18/21 13:33 03/18/21 14:18 03/18/21 15:08 Temperature 97.5 F L Temperature Source Temporal Pulse Rate 79 76 78 Respiratory Rate 18 19 H 22 H Respiratory Effort Normal Blood Pressure 126/93 H 116/78 119/68 Blood Pressure Mean 104 90 85 Pulse Ox 95 98 Oxygen Delivery Method Room Air Room Air Room Air 03/18/21 16:05 03/18/21 17:17 03/18/21 17:33 Temperature Temperature Source Pulse Rate 70 73 79 Respiratory Rate 17 19 H 15 Respiratory Effort Blood Pressure 124/88 H 113/83 H 113/83 H Blood Pressure Mean 100 93 Pulse Ox 98 98 97 Oxygen Delivery Method Room Air Room Air Positive well nourished and well developed General Appearance ED: well developed and NAD HEENT Reports moist mucous membranes normocephalic and atraumatic Eyes PERRL, EOMs intact bilaterally and conjunctivae normal General Eye ED: Yes normal appearance of both eyes Neck no lymphadenopathy and supple General: Negative for tenderness Chest Wall Chest: Negative for tenderness Resp normal respiratory effort and normal air movement Effort and Inspection: symmetric chest movement; Negative for respiratory distress Cardio regular rate, regular rhythm and no murmurs Peripheral Pulses: pulses 2+ throughout GI normal to inspection, nondistended, normoactive bowel sounds and non-tender Palpation: Negative for guarding or rebound tenderness present Back/Spine no CVA tenderness and no thoracic nor lumbar tenderness Extremity normal to inspection General Extremety ED: Negative for edema or tenderness General Extremity: Negative for edema Neuro oriented x3 and no sensory deficits noted Sensorium / Orientation: awake and alert Skin no rashes or lesions noted and no wounds Heart Score History: Slightly/Non-Suspicious ECG: Normal Age: >45 - <65 years Risk Factors: >/= 3 Risk Factors or History of CAD Troponin: </= Normal Limit Score: 3 MDM MDM MDM Narrative Medical decision making narrative: Patient transient chest pain. Cardiac work- up troponin x2 -. Heart score is a 3. Chest x-ray reviewed by myself and read by radiology shows no acute process. Patient remained symptom-free. He has a current work-up in process with his PCP team. He will call for follow-up. Return precautions discussed. All questions were answered. Patient is being discharged under pandemic conditions under declared global, national and state disaster activation, with limited medical resources. Patient and community understands this. Results discussed in layman's terms to the patient satisfaction. All questions answered in layman's terms. Patient understands importance of follow-up care as directed. Patient has been instructed to return to the ED immediately if new symptoms, problems, or ques tions occur. We mutually agree with the plan of disposition. The patient understand that they may call or return with any questions or concerns at any time. Lab Data Attestation: I reviewed the patient's lab results. Labs: Laboratory Results - last 24 hr 03/18/21 03/18/21 03/18/21 14:28 14:28 16:17 WBC 6.9 RBC 4.70 Hgb 14.6 Hct 42.0 MCV 89.4 MCH 31.1 MCHC 34.8 RDW Std Deviation 39.8 RDW Coeff of Dylon 12.2 Plt Count 161 MPV 8.5 Immature Gran % (Auto) 0.300 Neut % (Auto) 53.2 Lymph % (Auto) 30.9 [place] % (Auto) 11.7 H Eos % (Auto) 3.3 Baso % (Auto) 0.6 Absolute Neuts (auto) 3.7 Absolute Lymphs (auto) 2.14 Nucleated RBC % 0 Sodium 140 Potassium 3.6 Chloride 105 Carbon Dioxide 29.0 Anion Gap 6 BUN 13 Creatinine 1.11 Estim Creat Clear Calc 69.32 Est GFR (MDRD) Af Amer 87 Est GFR (MDRD) Non-Af 72 BUN/Creatinine Ratio 11.7 Glucose 125 H Calcium 9.5 Troponin I High Sens 4 4 Radiography Diagnostic Testing: Clinical Impression(s) from Imaging Studies Chest X-Ray 03/18/21 14:37 IMPRESSION: No active disease. Electronically Signed: Irwin Norton MD at 15:10 EST Tel , Service support , EKG Initial EKG: Attestation: I personally reviewed and interpreted this EKG as follows: Comments: Sinus rate of 73, no ST or T wave changes. Discharge Plan Triage Chief Complaint: Chest Pain ED Provider: Rober Chapman Dx/Rx/DC Orders Clinical Impression: Chest pain Instructions: ED Chest Pain, Uncertain Cause Prescriptions: No Action albuterol sulfate 90 mcg/actuation HFA aerosol inhaler 2 puff IH Q4H PRN (Reason: Sob &/Or Wheezing) RF: 0 valsartan-hydrochlorothiazide 160-12.5 mg tablet 1 tab PO DAILY RF: 0 Primary Care Provider: Aimee Romo NP Referrals: Aimee Romo NP, [employer]IAN-[employer] [Primary Care Provider] - 2 Days Disposition Disposition: Home, Self Care Discharge Date/Time: 03/18/21 17:33
[2021-03-18 14:37] LABS: Absolute Lymphocyte Count 2.14 X10^3/uL (0.83-4.51); Absolute Neutrophil Count 3.7 X10^3/uL (2.0-7.7); Basophil# 0.04 X10^3/uL; Basophil% 0.6 % (0-1); Eosinophil# 0.23 X10^3/uL; Eosinophils% 3.3 % (0-5); Hemoglobin 14.6 g/dL (13.0-16.5); Lymphocyte # 2.14 X10^3/ul (0.83-4.51); Lymphocyte % 30.9 % (19-41); Mean Corp Hgb Conc 34.8 g/dL (32-36); Mean Corpuscular Hgb 31.1 pg (27.0-32.0); Mean Corpuscular Volume 89.4 fL (80-94); Mean Platelet Vol. 8.5 fl (6.2-12.0); Monocyte# 0.81 X10^3/uL; Monocyte% 11.7 % (0-10); NRBC Flagged by Analyzer 0 % (0-5); Neutrophil # 3.68 X10^3/uL (2.7-7.7); Neutrophil % 53.2 % (47-70); Platelet Count 161 K/mm3 (150-450); RBC Distribution Width CV 12.2 % (11.6-14.6); RBC Distribution Width SD 39.8 fl (35.1-43.9); White Blood Count 6.9 K/mm3 (4.4-11.0)
--- NOTE | 2021-03-18 14:37 | RAD_ITS ---
STUDY: X-RAY CHEST REASON FOR EXAM: Male, 60 years old. chest pain TECHNIQUE: Single AP portable view of the chest. COMPARISON: None. FINDINGS: The lungs are clear and expanded. There is no demonstrated pleural abnormality. There is moderate cardiac enlargement. Normal mediastinum and jarrett. Normal visualized pulmonary arteries. Normal visualized aortic arch and descending thoracic aorta. Normal visualized thoracic spine. Normal visualized ribs, clavicles, and shoulders. There is no demonstrated abnormality of the visualized soft tissue structures of the upper abdomen. RAD/Chest 1 View (Portable) IMPRESSION: No active disease. Electronically Signed: Irwin Norton MD at 15:10 EST Tel , Service support ,
[2021-03-18 14:52] LABS: Anion Gap 6 (5-15); BUN 13 mg/dL (7-18); BUN/Creat Ratio 11.7 RATIO (10-20); Calcium,Total 9.5 mg/dL (8.5-10.1); Chloride 105 mmol/L (98-107); Creatinine, Serum 1.11 mg/dL (0.70-1.30); EST Glomerular Filtration Rate 72 mL/min (>60); Est Glom Filt Rate - Afr Amer 87 mL/min (>60); Estimated Creatinine Clearance 69.32 ml/min; Glucose 125 mg/dL (74-106); Potassium 3.6 mmol/L (3.5-5.1); Sodium Level 140 mmol/L (136-145); Troponin-I HS 4 pg/mL (3.0-78.0)
[2021-03-18] MEDS: Aspirin 81 MG TAB.CHEW 324 MG PO (15:07)
[2021-03-18 15:08] VITALS: BP 119/68; PULSE 78; RESP 22; O2SAT 98
[2021-03-18 16:05] VITALS: BP 124/88; PULSE 70; RESP 17; O2SAT 98
[2021-03-18 16:56] LABS: Troponin-I HS 4 pg/mL (3.0-78.0)
[2021-03-18 17:17] VITALS: BP 113/83; PULSE 73; RESP 19; O2SAT 98
[2021-03-18 17:33] VITALS: BP 113/83; PULSE 79; RESP 15; O2SAT 97
== END 2021-03-18 17:33 | disposition home or self-care (01) ==
PROVIDERS: Emergency Provider Emergency Medicine; PCP Nurse Practitioner; Visit Provider Emergency Medicine
DX: R07.9 Chest pain, unspecified (principal); J44.9 Chronic obstructive pulmonary disease, unspecified; I10 Essential (primary) hypertension; Z87.891 Personal history of nicotine dependence; Z86.16 Personal history of COVID-19; Z79.899 Other long term (current) drug therapy
CPT/HCPCS: 71045; 80048; 84484; 85025; 93005; 99284; A4216

== ENCOUNTER 2021-04-02 09:56 | Outpatient (CLI) | payer BC, SELFPAY ==
--- NOTE | 2021-04-04 10:30 | PFT ---
INTRODUCTION: The patient is a 60-year-old male that presents for pulmonary function studies secondary to a prior diagnosis of COVID-19. Respiratory therapy reported good patient effort. Bronchodilators were used during testing. INTERPRETATION: Forced expiration spirometry demonstrates no evidence of a large airways obstructive ventilatory defect. There was no significant response to aerosolized bronchodilators. Spirograms are of good quality and plateau normally. Body plethysmography was performed and reveals lung volumes to be within normal limits. Diffusing capacity by single breath CO is reduced at 60% of predicted. IMPRESSION: Isolated moderate reduction in diffusing capacity, which could be related to an underlying pulmonary vascular disorder such as pulmonary hypertension. Clinical correlation is recommended.
== END 2021-04-02 23:59 | disposition home or self-care (01) ==
PROVIDERS: PCP Nurse Practitioner; Referring Provider Nurse Practitioner; Visit Provider Nurse Practitioner
DX: R00.2 Palpitations (principal); U07.1 COVID-19; R07.89 Other chest pain
CPT/HCPCS: 93225; 93226; 94060; 94726; 94729

== ENCOUNTER 2021-04-10 09:55 | Outpatient (CLI) | payer BC, SELFPAY ==
--- NOTE | 2021-04-10 10:00 | CT_ITS ---
STUDY: CARDIAC CALCIUM SCORING - CT CHEST REASON FOR EXAM: Male, 60 years old. Hypertension RADIATION DOSAGE (If Supplied By Facility): CTDIvol = ( 12.19 ) mGy, DLP = ( 243.79 ) mGycm TECHNIQUE: Axial non-enhanced images were acquired through the heart for the sole purpose of measuring coronary artery calcium. Individualized dose optimization techniques were used for this CT. COMPARISON: 05/27/19 FINDINGS: Please see the patient''s medical record for a personalized calcium score. There is stable moderate emphysema with associated peripheral fibrosis in the visualized lungs. This is stable when compared with the chest CT dated 05/27/19. The visualized lungs are otherwise grossly clear. The liver is low in density, consistent with fatty infiltration. CT/Limited Chest CT w/CCTA IMPRESSION: Please see the patient''s medical record for a personalized calcium score. Stable moderate emphysema with associated peripheral fibrosis in the visualized lung foote. Fatty liver. Please go to: [email or web address] , for a description of the calculator. Electronically Signed: Juancarlos Gutierrez MD at 16:09 EST ,
--- NOTE | 2021-04-10 10:01 | ECHOD_ITS ---
Reason For Study: CHEST PAIN Procedure This was a 2D Doppler, Color Flow transthoracic echocardiogram. The study was technically difficult. Exam performed in department. Left Ventricle Based upon the 2D echocardiographic images obtained there appears to be grossly normal left ventricular size, wall motion, and systolic function. The estimated ejection fraction is 60 %. No evidence for diastolic dysfunction. Right Ventricle Based upon the 2D echocardiographic images obtained there appears to be grossly normal right ventricular size and systolic function. Atria Normal left atrium. Normal right atrium. No doppler evidence for ASD. Mitral Valve There is no mitral annular calcification. Normal mitral valve. Tricuspid Valve Normal tricuspid valve. Trivial tricuspid valve insufficiency. Unable to estimate RV systolic pressure/pulmonary artery pressure due to technically difficult study. Aortic Valve Trisinus/trileaflet aortic valve. Normal aortic valve. Pulmonic Valve The pulmonic valve is not well visualized. Trivial pulmonic valve insufficiency. Great Vessels Normal sized aortic root. Pericardium/Pleural No pericardial effusion. MMode/2D Measurements & Calculations LVIDd: 5.2 cm IVSd: 0.97 cm Ao root diam: 3.7 cm LVIDs: 3.5 cm LVPWd: 1.1 cm RVDd: 3.5 cm FS: 32.0 % LAV(MOD-bp): 36.7 ml LVAd ap4: 31.1 cm2 LVAd ap2: 21.9 cm2 LAV(MOD-bp) Indexed: 16.9 ml/m2 LVLd ap4: 8.5 cm LVLd ap2: 7.6 cm LAV(MOD-sp2): 43.3 ml EDV(MOD-sp4): 94.9 ml EDV(MOD-sp2): 54.7 ml LAV(MOD-sp4): 30.1 ml EDV(sp4-el): 96.2 ml EDV(sp2-el): 53.9 ml LVAs ap4: 17.1 cm2 LVAs ap2: 12.1 cm2 LVLs ap4: 6.5 cm LVLs ap2: 5.9 cm ESV(MOD-sp4): 40.1 ml ESV(MOD-sp2): 22.0 ml ESV(sp4-el): 38.2 ml ESV(sp2-el): 21.1 ml EF(MOD-sp4): 57.7 % EF(MOD-sp2): 59.8 % EF(sp4-el): 60.3 % SV(MOD-sp4): 54.8 ml SV(MOD-sp2): 32.7 ml SV(sp4-el): 58.0 ml LA dimension(2D): 4.1 cm LA A4 area: 13.2 cm2 RA A4 area: 11.3 cm2 Time Measurements MV dec time: 0.20 sec Doppler Measurements & Calculations MV E max diomedes: 79.6 cm/sec Lat Peak E' Diomedes: 9.1 cm/sec Med Peak E' Diomedes: 7.8 cm/sec MV A max diomedes: 62.4 cm/sec E/E' lat: 8.7 E/E' med: 10.2 MV E/A: 1.3 Ao V2 max: 104.9 cm/sec LV V1 max: 85.3 cm/sec PA V2 max: 83.2 cm/sec Ao max P.4 mmHg LV V1 max P.9 mmHg ECHO/Echo Complete Interpretation Summary The study was technically difficult. Based upon the 2D echocardiographic images obtained there appears to be grossly normal left ventricular size, wall motion, and systolic function. The estimated ejection fraction is 60 %. Trivial tricuspid valve insufficiency. Trivial pulmonic valve insufficiency. Unable to estimate RV systolic pressure/pulmonary artery pressure due to techni josue difficult study. No evidence for diastolic dysfunction. Ordering Physician: Aimee Romo Referring Physician: Aimee Romo Performed By: Jackelyn Hendrickson, PARTH, RVT
[2021-04-10 10:45] VITALS: BP 109/84; PULSE 68; RESP 18; O2SAT 98; BMI 34.9
--- NOTE | 2021-04-21 15:47 | CA.SCORE ---
Calcium Scoring Coronary Calcium Scoring: High-resolution Computed Tomographic imaging of the chest was performed on [04/10/2021], with particular attention paid to the coronary arteries. Images from the examination were analyzed for the presence and extent of coronary artery calcification , using coronary calcium quantification software. The patient tolerated the procedure well and there were no complications. The results of the coronary calcification analysis are provided below. Left main score 0 Left anterior descending artery score 0 Left circumflex artery score 0 Right coronary artery score 5.7. Total Agatston score 5.76. The above is suggestive of a percentile ranking of between 25 and 50%. Conclusion: The above is suggestive of minimal plaque burden only. Calcium Scoring Interpretation: 0 No identifiable atherosclerotic plaque. Very low cardiovascular disease risk. <5% chance of presence coronary artery disease A Negative Examination 1-10 Minimal Plaque burden. Significant coronary artery disease very unlikely. 11-100 Mild plaque burden. Likely mild or minimal coronary atherosclerosis. 101-400 Moderate plaque burden Moderate non-obstructive coronary artery disease highly likely. Over 400 Extensive plaque burden. High likelihood of at least one significant coronary stenosis (>50% diameter)
== END 2021-04-10 23:59 | disposition home or self-care (01) ==
LOC: CT 09:56
PROVIDERS: PCP Nurse Practitioner; Referring Provider Nurse Practitioner; Visit Provider Nurse Practitioner
DX: I10 Essential (primary) hypertension (principal); R07.89 Other chest pain; U07.1 COVID-19
CPT/HCPCS: 75571; 76380; 93306

== ENCOUNTER → 2021-07-09 | Outpatient (CLI) | payer BC, SELFPAY ==
[2021-07-09 15:21] LABS: Absolute Lymphocyte Count 2.31 X10^3/uL (0.83-4.51); Absolute Neutrophil Count 4.6 X10^3/uL (2.0-7.7); Basophil# 0.05 X10^3/uL; Basophil% 0.7 % (0-1); Eosinophil# 0.24 X10^3/uL; Eosinophils% 3.1 % (0-5); Hematocrit 43.7 % (40-54); Hemoglobin 15.1 g/dL (13.0-16.5); Lymphocyte # 2.31 X10^3/ul (0.83-4.51); Lymphocyte % 30.2 % (19-41); Mean Corp Hgb Conc 34.6 g/dL (32-36); Mean Corpuscular Hgb 30.9 pg (27.0-32.0); Mean Corpuscular Volume 89.5 fL (80-94); Mean Platelet Vol. 8.8 fl (6.2-12.0); Monocyte# 0.46 X10^3/uL; NRBC Flagged by Analyzer 0 % (0-5); Neutrophil # 4.55 X10^3/uL (2.7-7.7); Neutrophil % 59.6 % (47-70); Platelet Count 208 K/mm3 (150-450); RBC Distribution Width CV 12.3 % (11.6-14.6); RBC Distribution Width SD 40.2 fl (35.1-43.9); Red Blood Count 4.88 M/mm3 (4.6-6.2); White Blood Count 7.6 K/mm3 (4.4-11.0)
[2021-07-09 15:51] LABS: Erythrocyte Sedimentation Rate 21 mm/hr (0-20); Globulin 3.8 g/dL (2.2-4.2)
[2021-07-09 16:29] LABS: AST(SGOT) 42 U/L (15-37); Alanine Aminotransfer ALT/SGPT 53 U/L (16-61); Alkaline Phosphatase 60 U/L (45-117); Bilirubin, Direct 0.23 mg/dL (0.00-0.30); CRP 3.03 mg/L (0.0-3.0); Protein, Total 7.9 g/dL (6.4-8.2); Rheumatoid Factor < 10.0 IU/mL (<15)
[2021-07-11 15:09] LABS: Anti-Scleroderma-70 AB <0.2 AI (0.0-0.9); SJOGREN'S Anti-SS-A test < 0.2 AI (0.0-0.9); SJOGREN'S Anti-SS-B test < 0.2 AI (0.0-0.9)
[2021-07-11 17:21] LABS: ANTINUCLEAR ANTIBODIES DIRECT Negative (Negative); Anti-dsDNA Ab <1 IU/mL (0-9)
[2021-07-15 08:08] LABS: Angiotensin Convert Enzyme 68 U/L (14-82); Cytoplasmic Ab (C-ANCA) <1:20 titer (Neg:<1:20)
[2021-07-15 13:32] LABS: Anti-Smooth Muscle ABS 10 Units (0-19); CCP IgG Antibodies 3 units (0-19); Perinuclear Ab (P-ANCA) <1:20 titer (Neg:<1:20)
== END | disposition home or self-care (01) ==
PROVIDERS: Referring Provider Internal Medicine Pulmonary Disease; Visit Provider Internal Medicine Pulmonary Disease
DX: N50.89 Other specified disorders of the male genital organs (principal)
CPT/HCPCS: 36415; 80076; 82164; 83516; 85025; 85652; 86038; 86140; 86200; 86225; 86235; 86256; 86431

== ENCOUNTER → 2022-01-15 | Outpatient (CLI) | payer BC, SELFPAY ==
--- NOTE | 2022-01-15 16:24 | RAD_ITS ---
STUDY: XR Chest 2 Views 01/15/2022 4:30 PM REASON FOR EXAM: Male, 61 years old. CHEST PAIN chest pain COMPARISON: 03.18.21 TECHNIQUE: XR Chest 2 Views FINDINGS: There is no demonstrated pleural abnormality. Normal heart size. Normal mediastinum. Normal jarrett. Prominent appearing increased interstitial lung markings. Normal visualized pulmonary arteries. There is atherosclerotic calcification of the aortic arch with tortuosity. There are diffuse degenerative changes of the visualized thoracic spine. There is degenerative osteoarthritis of the bilateral shoulders. There is no demonstrated abnormality of the visualized soft tissue structures of the upper abdomen. RAD/Chest PA and Lateral IMPRESSION: There are no acute findings. Electronically Signed: Brian Samaniego MD at 16:39 EST ,
[2022-01-15 17:53] LABS: Absolute Lymphocyte Count 2.92 X10^3/uL (0.83-4.51); Basophil# 0.06 X10^3/uL; Basophil% 0.6 % (0-1); Eosinophil# 0.32 X10^3/uL; Eosinophils% 3.4 % (0-5); Hematocrit 46.8 % (40-54); Hemoglobin 15.9 g/dL (13.0-16.5); Lymphocyte # 2.92 X10^3/ul (0.83-4.51); Lymphocyte % 31.2 % (19-41); Mean Corpuscular Hgb 30.1 pg (27.0-32.0); Mean Corpuscular Volume 88.5 fL (80-94); Mean Platelet Vol. 8.7 fl (6.2-12.0); Monocyte# 1.07 X10^3/uL; Monocyte% 11.4 % (0-10); NRBC Flagged by Analyzer 0 % (0-5); Neutrophil # 4.95 X10^3/uL (2.7-7.7); Neutrophil % 53.1 % (47-70); Platelet Count 250 K/mm3 (150-450); RBC Distribution Width CV 11.9 % (11.6-14.6); RBC Distribution Width SD 38.3 fl (35.1-43.9); Red Blood Count 5.29 M/mm3 (4.6-6.2); White Blood Count 9.4 K/mm3 (4.4-11.0)
[2022-01-15 18:02] LABS: Erythrocyte Sedimentation Rate 22 mm/hr (0-20)
[2022-01-15 18:24] LABS: Vitamin B12 368 pg/mL (211-911)
[2022-01-15 18:45] LABS: ALB/GLOB Ratio 1.1 RATIO (0.9-2.4); AST(SGOT) 30 U/L (15-37); Alanine Aminotransfer ALT/SGPT 41 U/L (16-61); Alkaline Phosphatase 63 U/L (45-117); Anion Gap 7 (5-15); BUN 11 mg/dL (7-18); BUN/Creat Ratio 11.4 RATIO (10-20); CPK Total, Creatine Kinase 170 U/L (39-308); CRP 6.37 mg/L (0.0-3.0); Calcium,Total 9.4 mg/dL (8.5-10.1); Chloride 101 mmol/L (98-107); Cholesterol 193 mg/dL (200); Creatinine, Serum 0.97 mg/dL (0.70-1.30); EST Glomerular Filtration Rate 84 mL/min (>60); Est Glom Filt Rate - Afr Amer 102 mL/min (>60); Globulin 3.8 g/dL (2.2-4.2); Glucose 92 mg/dL (74-106); High Density Lipoprotein 60 mg/dL; Potassium 3.7 mmol/L (3.5-5.1); Protein, Total 7.8 g/dL (6.4-8.2); Sodium Level 135 mmol/L (136-145); Triglycerides 185 mg/dL; Troponin-I HS 4 pg/mL (3.0-78.0); Very Low Density Lipoprotein 37 mg/dL (5-40)
[2022-01-21 15:13] LABS: Vitamin D 1,25-Dihydroxy 57.1 pg/mL (24.8-81.5)
== END | disposition home or self-care (01) ==
LOC: MTLAB 16:22
PROVIDERS: PCP Nurse Practitioner Family; Referring Provider Nurse Practitioner Family; Visit Provider Nurse Practitioner Family
DX: R07.9 Chest pain, unspecified (principal); I27.20 Pulmonary hypertension, unspecified; K76.0 Fatty (change of) liver, not elsewhere classified; E78.5 Hyperlipidemia, unspecified; Z86.39 Personal history of other endocrine, nutritional and metabolic disease; Z13.0 Encounter for screening for diseases of the blood and blood-forming organs and certain disorders involving the immune mechanism
CPT/HCPCS: 36415; 71046; 80053; 80061; 82550; 82607; 82652; 82746; 84484; 85025; 85652; 86140

== ENCOUNTER → 2022-02-03 | Outpatient (CLI) | payer BC, SELFPAY ==
--- NOTE | 2022-02-03 10:05 | CDU_ITS ---
Reason For Study: Nathan Natasha Rt. Velocities/BP Lt. Velocities/BP Prox CCA 83.4/22.0 cm/sec. Prox CCA 95.7/24.8 cm/sec. Mid CCA 66.4/17.3 cm/sec. Mid CCA 87.2/23.9 cm/sec. Dist CCA 70.2/21.1 cm/sec. Dist CCA 62.6/17.3 cm/sec. Prox ICA 69.2/20.1 cm/sec. Prox ICA 43.7/17.3 cm/sec. Mid ICA 78.4/30.9 cm/sec. Mid ICA 57.0/23.0 cm/sec. Dist ICA 56.4/25.1 cm/sec. Dist ICA 54.9/24.0 cm/sec. Rt. ICA/CCA = 1.2. Lt. ICA/CCA = 0.7. Prox ECA 51.5/10.9 cm/sec. Prox ECA 73.0/19.2 cm/sec. Rt. Vert. 27.0/12.0 cm/sec. Lt. Vert. 37.2/15.2 cm/sec. Right Extracranial There is intimal thickening but no significant atherosclerotic plaque noted in the right common carotid artery. There is heterogeneous, irregular atherosclerotic plaque noted in the right internal carotid artery. The right internal carotid artery is very tortuous. There is heterogeneous, irregular atherosclerotic plaque noted in the right external carotid artery. Antegrade flow is noted in the right vertebral artery. Left Extracranial There is intimal thickening but no significant atherosclerotic plaque noted in the left common carotid artery. There is heterogeneous, irregular atherosclerotic plaque noted in the left internal carotid artery. There is heterogeneous, irregular atherosclerotic plaque noted in the left external carotid artery. Antegrade flow is noted in the left vertebral artery. Procedure Carotid Duplex 27244. This is a Carotid Duplex examination using B-mode, color flow and specral Doppler. The exam was diagnostic. Exam performed in department. VL/Carotid Duplex Ultrasound Interpretation Summary Mild (<50%) stenosis right extracranial internal carotid. Mild (<50%) stenosis left extracranial internal carotid. Patent and antegrade vertebrals bilaterally. Ordering Physician: Natasha Evans Referring Physician: Natasha Evans Performed By: Waldemar Beaulieu RVT
== END | disposition home or self-care (01) ==
LOC: CVS 10:04
PROVIDERS: PCP Nurse Practitioner Family; Visit Provider Nurse Practitioner Family
DX: I65.23 Occlusion and stenosis of bilateral carotid arteries (principal); R07.9 Chest pain, unspecified
CPT/HCPCS: 93880; 93882

== ENCOUNTER → 2023-03-03 | Outpatient (CLI) | payer BC, SELFPAY ==
[2023-03-03 14:28] LABS: Absolute Lymphocyte Count 2.09 X10^3/uL (0.83-4.51); Absolute Neutrophil Count 2.5 X10^3/uL (2.0-7.7); Basophil# 0.03 X10^3/uL; Basophil% 0.5 % (0-1); Eosinophil# 0.21 X10^3/uL; Eosinophils% 3.8 % (0-5); Hematocrit 43.7 % (40-54); Hemoglobin 14.7 g/dL (13.0-16.5); Lymphocyte # 2.09 X10^3/ul (0.83-4.51); Lymphocyte % 37.4 % (19-41); Mean Corp Hgb Conc 33.6 g/dL (32-36); Mean Corpuscular Volume 86.2 fL (80-94); Mean Platelet Vol. 8.8 fl (6.2-12.0); Monocyte# 0.77 X10^3/uL; Monocyte% 13.8 % (0-10); NRBC Flagged by Analyzer 0 % (0-5); Neutrophil # 2.46 X10^3/uL (2.7-7.7); Platelet Count 193 K/mm3 (150-450); RBC Distribution Width CV 12.1 % (11.6-14.6); RBC Distribution Width SD 37.8 fl (35.1-43.9); Red Blood Count 5.07 M/mm3 (4.6-6.2); White Blood Count 5.6 K/mm3 (4.4-11.0)
[2023-03-03 14:46] LABS: ALB/GLOB Ratio 1.2 RATIO (0.9-2.4); AST(SGOT) 62 U/L (15-37); Alanine Aminotransfer ALT/SGPT 121 U/L (16-61); Albumin, Serum 3.9 g/dL (3.2-5.0); Alkaline Phosphatase 56 U/L (45-117); Amylase 77 U/L (25-115); Anion Gap 5 (5-15); BUN 11 mg/dL (7-18); BUN/Creat Ratio 11.8 RATIO (10-20); Calcium,Total 8.9 mg/dL (8.5-10.1); Chloride 102 mmol/L (98-107); Creatinine, Serum 0.93 mg/dL (0.70-1.30); EST Glomerular Filtration Rate 88 mL/min (>60); Est Glom Filt Rate - Afr Amer 106 mL/min (>60); Globulin 3.2 g/dL (2.2-4.2); Glucose 96 mg/dL (74-106); Lipase 57 U/L (13-75); Potassium 3.7 mmol/L (3.5-5.1); Protein, Total 7.1 g/dL (6.4-8.2); Sodium Level 137 mmol/L (136-145)
== END | disposition home or self-care (01) ==
PROVIDERS: PCP Nurse Practitioner Family; Referring Provider Internal Medicine; Visit Provider Internal Medicine
DX: R10.13 Epigastric pain (principal)
CPT/HCPCS: 80053; 82150; 83690; 85025